=== PATIENT | male | born 1965 | race Caucasian/White ===

== ENCOUNTER 2017-01-08 09:09 | Inpatient (IN) | payer BC, OTHER ==
[2017-01-06 09:58] LABS: HIV 1&2 ANTIBODY SCREEN Nonreactive (Nonreactive); HIV-1 p24 ANTIGEN Nonreactive (Nonreactive)
[2017-01-06 10:27] LABS: BLOOD UREA NITROGEN 12 mg/dL (7-18)
[2017-01-06 10:30] LABS: ASPARTATE AMINO TRANSFERASE 21 U/L (15-37)
[2017-01-06 11:48] LABS: HEPATITIS C VIRUS ANTIBODY Nonreactive (Nonreactive)
[~2017-01-08] VITALS: Ht 180.3 cm; Wt 104.0 kg
[~2017-01-08 09:09] MED LIST: ALPR0.5T PO; BACITRACIN 50,000 UNIT ONE; BUPIVACAINE/PF 0.25% ONE; BUPIVACAINE/PF-EPI 0.5% 1:200K ONE; LIDOCAINE/PF 1%-EPI 1:200K, 30ML ONE; MELO7.5T5 PO; OXYC1TAB9 PO; PREG150C PO; THROMBIN 5,000 UNIT VIAL TP ONE
[2017-01-08] MEDS ORDERED: CELE200C PO (10:04)
[2017-01-08 10:05] VITALS: BP 143/89
[2017-01-08] MEDS: LACTATED RINGERS 1,000 ML IV SCH ×2 (10:05→15:33)
[2017-01-08] MEDS ORDERED: FENTANYL PF 250 MCG/5ML ONE (10:43)
[2017-01-08] MEDS ORDERED: REMIFENTANIL 2 MG ONE (10:43)
[2017-01-08] MEDS ORDERED: MIDAZOLAM 1 MG/ML, 2ML ONE (10:43)
[2017-01-08] MEDS ORDERED: hydrALAzine 20 MG/ML, 1ML IV PRN (14:30)
[2017-01-08] MEDS ORDERED: MEPERIDINE/PF 25MG/0.5ML IVPush PRN (14:30)
[2017-01-08] MEDS ORDERED: METOPROLOL 1 MG/ML, 5ML IV PRN (14:30)
[2017-01-08] MEDS ORDERED: OXYcodone 5 MG/5 ML ORAL.SOL UDC PO PRN (14:30)
[2017-01-08] MEDS ORDERED: ALBUTEROL SULFATE 2.5 MG/3 ML NPPB PRN (14:30)
[2017-01-08] MEDS ORDERED: LABETALOL 5MG/ML, 20ML IV PRN ×2 (14:30→18:30)
[2017-01-08] MEDS ORDERED: ACETAMINOPHEN 325 MG TABLET PO PRN (14:30)
[2017-01-08] MEDS ORDERED: MIDAZOLAM 1 MG/ML, 2ML IV PRN (14:30)
[2017-01-08] MEDS ORDERED: PROMETHAZINE 25 MG/ML, 1ML IV PRN (14:30)
[2017-01-08] MEDS ORDERED: EPHEDRINE 50 MG/ML, 1ML IVPush PRN (14:30)
[2017-01-08] MEDS ORDERED: ONDANSETRON 2MG/ML, 2ML IVPush PRN (14:30)
[2017-01-08] MEDS ORDERED: FENTANYL PF 100 MCG/2ML ONE (15:28)
[2017-01-08] MEDS ORDERED: HYDROmorphone 1 MG/ML, 1ML ONE (15:28)
[2017-01-08] MEDS: FENTANYL PF 100 MCG/2ML IV PRN ×2 (15:30→15:43)
[2017-01-08] MEDS: HYDROmorphone 1 MG/ML, 1ML IV PRN ×2 (15:35→15:55)
[2017-01-08] MEDS ORDERED: PROPOFOL 10 MG/ML, 20ML ONE (16:12)
[2017-01-08] MEDS ORDERED: SUCCINYLCHOLINE 20 MG/ML, 10ML ONE (16:12)
[2017-01-08] MEDS ORDERED: ROCURONIUM 10 MG/ML ONE (16:12)
[2017-01-08] MEDS ORDERED: CEFAZOLIN 1,000 MG ONE (16:12)
[2017-01-08] MEDS ORDERED: ONDANSETRON 2MG/ML, 2ML ONE (16:12)
[2017-01-08] MEDS ORDERED: DEXAMETHASONE 4 MG/ML, 5ML ONE (16:12)
[2017-01-08] MEDS ORDERED: PROPOFOL 10 MG/ML, 50ML ONE (16:12)
[2017-01-08] MEDS: OXYcodone IR 5MG TABLET PO PRN ×2 (18:19→22:39)
[2017-01-08] MEDS: DIAZEPAM 5 MG TABLET PO PRN (18:19)
[2017-01-08] MEDS ORDERED: DIPHENHYDRAMINE 50 MG CAPSULE PO PRN (18:30)
[2017-01-08] MEDS ORDERED: DIPHENHYDRAMINE 50 MG/ML, 1ML IM PRN (18:30)
[2017-01-08] MEDS ORDERED: PROMETHAZINE 25 MG/ML, 1ML IM PRN (18:30)
[2017-01-08] MEDS ORDERED: CEFAZOLIN PMX 1GM/50ML 50 ML IVPB SCH (18:30)
[2017-01-08] MEDS ORDERED: MAGNESIUM HYDROXIDE 8%, 30ML UDC PO PRN (18:30)
[2017-01-08] MEDS ORDERED: PROMETHAZINE 25 MG SUPP PR PRN (18:30)
[2017-01-08] MEDS ORDERED: OXYcodone IR 5MG TABLET PO PRN (18:30)
[2017-01-08] MEDS ORDERED: BISACODYL 10 MG SUPP PR PRN (18:30)
[2017-01-08] MEDS ORDERED: DIPHENHYDRAMINE 50 MG/ML, 1ML IVPush PRN (18:30)
[2017-01-08] MEDS: D5%-LACTATED RINGERS 1,000 ML IV SCH (18:44)
[2017-01-08] MEDS: HYDROmorphone 2 MG/ML, 1ML IM PRN ×2 (18:52→21:44)
[2017-01-08] MEDS: CEFAZOLIN PMX 1GM/50ML 50 ML IVPB SCH (19:29)
[2017-01-08 19:45] VITALS: BP 122/70
[2017-01-08] MEDS: PREGABALIN 150 MG CAPSULE PO SCH (20:29)
[2017-01-08] MEDS: ACETAMINOPHEN 500 MG TABLET PO SCH (20:29)
[2017-01-08] MEDS ORDERED: ZOLPIDEM 5MG TABLET PO PRN (21:00)
[2017-01-09] MEDS: DIAZEPAM 5 MG TABLET PO PRN ×3 (00:19→14:17)
[2017-01-09 00:20] VITALS: BP 109/62
[2017-01-09] MEDS: OXYcodone IR 5MG TABLET PO PRN ×4 (02:40→14:17)
[2017-01-09] MEDS: CEFAZOLIN PMX 1GM/50ML 50 ML IVPB SCH (05:01)
[2017-01-09] MEDS: HYDROmorphone 2 MG/ML, 1ML IM PRN (05:15)
[2017-01-09 08:03] VITALS: BP 117/76
[2017-01-09] MEDS ORDERED: SENNA/DOCUSATE TABLET PO SCH (09:00)
[2017-01-09] MEDS: D5%-LACTATED RINGERS 1,000 ML IV SCH (09:00)
[2017-01-09] MEDS: ACETAMINOPHEN 500 MG TABLET PO SCH (09:18)
[2017-01-09] MEDS: PREGABALIN 150 MG CAPSULE PO SCH (09:19)
[2017-01-09 14:26] VITALS: BP 124/79
== END 2017-01-09 16:30 | disposition home or self-care (01) | DRG 473 ==
LOC: OUT 09:09 → EDSTATUS 11:30 → 4NOR 16:28 → OUT 16:35 → 4NOR 16:35 → DCLOUNGE 01-09 16:10
PROVIDERS: ADMIT Orthopaedic Surgery Orthopaedic Surgery of the Spine; ATTEND Orthopaedic Surgery Orthopaedic Surgery of the Spine
PROC: 0RB30ZZ Excision of Cervical Vertebral Disc, Open Approach (ICD-10-PCS; 2017-01-08)
PROC: 01N10ZZ Release Cervical Nerve, Open Approach (ICD-10-PCS; 2017-01-08)
PROC: 4A11X4G Monitoring of Peripheral Nervous Electrical Activity, Intraoperative, External Approach (ICD-10-PCS; 2017-01-08)
PROC: 0RG10A0 Fusion of Cervical Vertebral Joint with Interbody Fusion Device, Anterior Approach, Anterior Column, Open Approach (ICD-10-PCS; principal; 2017-01-08 11:30)
DX: M48.02 Spinal stenosis, cervical region (principal); M50.123 Cervical disc disorder at C6-C7 level with radiculopathy; M47.22 Other spondylosis with radiculopathy, cervical region
CPT/HCPCS: 36415; 71020; 72040; 80053; 80074; 81003; 85025; 85610; 85651; 85730; 86703; 87899; 93005; C1713; J0690; J1100; J1170; J2250; J2405; J2704; J3010; J3490; C1762; C1778; G0435; J0330; J7120; J7121

== ENCOUNTER 2017-01-13 15:49 | Emergency (ER) | payer OTHER ==
[~2017-01-13] VITALS: Ht 180.3 cm; Wt 102.9 kg
[~2017-01-13 15:49] MED LIST changes: -BACITRACIN 50,000 UNIT ONE; -BUPIVACAINE/PF 0.25% ONE; -BUPIVACAINE/PF-EPI 0.5% 1:200K ONE; +CELE200C PO; -LIDOCAINE/PF 1%-EPI 1:200K, 30ML ONE; -THROMBIN 5,000 UNIT VIAL TP ONE
[2017-01-13 15:51] VITALS: BP 115/77
== END 2017-01-13 17:26 | disposition left against medical advice (07) ==
LOC: ED 17:20
DX: Z53.21 Procedure and treatment not carried out due to patient leaving prior to being seen by health care provider (principal)